=== PATIENT | male | born 1990 | race African-American/Black ===

== ENCOUNTER 2019-07-13 02:39 | Emergency (ER) | payer OTHER ==
[~2019-07-13] VITALS: Ht 165.1 cm; Wt 59.1 kg
[2019-07-13 02:44] VITALS: Ht 165.1 cm; Wt 59.1 kg
[2019-07-13 03:17] LABS: CALC OSMOLALITY 273 mosm/kg (275-300); CALCIUM 8.7 mg/dL (8.5-10.1); CARBON DIOXIDE 28.9 mmol/L (21.0-32.0); CHLORIDE - SERUM 100 mmol/L (98-107); CREATININE - SERUM 1.2 mg/dL (0.6-1.3); GLUCOSE 96 mg/dL (74-106); POTASSIUM - SERUM 4.3 mmol/L (3.5-5.1); SODIUM 137 mmol/L (136-145); UREA NITROGEN 12 mg/dL (7-18); eGFR NON AFRICAN AMERICAN 75 mL/min (90-120)
[2019-07-13 03:23] LABS: BASOPHILS 0.2 % (0-2); EOSINOPHILS 1.2 % (0-7); HEMATOCRIT 44.4 % (42.0-54.0); IMMATURE GRANULOCYTES 0.1 % (0-5); MCH 31.7 pg (26.0-34.0); MCHC 33.8 g/dL (31.0-37.0); MCV 93.9 fL (80.0-100.0); MEAN PLATELET VOLUME 10.2 fL (7.4-10.4); MONOCYTES 11.5 % (2-11); PLATELET COUNT 226 10x3/uL (130-400); RBC 4.73 10x6/uL (4.20-6.10); RDW 12.2 % (11.5-14.5); WBC 8.6 10x3/uL (4.8-10.8)
[2019-07-13 03:28] LABS: INR 0.95 (0.85-1.17); PROTIME 12.7 SECONDS (11.6-15.0)
[2019-07-13 03:29] LABS: APTT 31.2 SECONDS (22.8-39.4)
[2019-07-13 03:36] LABS: ALBUMIN 3.8 g/dL (3.4-5.0); ALKALINE PHOSPHATASE 70 U/L (30-120); ALT (SGPT) 40 U/L (10-68); BILIRUBIN - TOTAL 0.51 mg/dL (0.2-1.3); C-REACTIVE PROTEIN 2.6 mg/dL (0.0-0.9); CKMB 0.8 U/L (0.0-3.6); CREATINE KINASE 238 UL (21-232); FERRITIN 182 ng/mL (3-244); PROTEIN - SERUM 7.7 g/dL (6.4-8.2)
[2019-07-13 03:37] LABS: TROPONIN-I < 0.017 ng/mL (0.000-0.060)
[2019-07-13 03:39] LABS: D-DIMER-QUANTITATIVE < 0.27 ug/mLFEU (0.20-0.54)
[2019-07-13 04:00] LABS: BILIRUBIN NEGATIVE (NEGATIVE); GLUCOSE NEGATIVE (NEGATIVE); KETONE NEGATIVE (NEGATIVE); NITRITE NEGATIVE (NEGATIVE); SPECIFIC GRAVITY 1.005 (1.005-1.020); UROBILINOGEN NORMAL (NORMAL)
[2019-07-13] MEDS ORDERED: KEFLEX500 MG PO (04:04)
[2019-07-13] MEDS ORDERED: ACETAMINOPHEN500 M1 PO (04:04)
[2019-07-13] MEDS ORDERED: IBUPROFEN800 MG PO (04:04)
[2019-07-13 05:41] VITALS: BP 109/65
== END 2019-07-13 05:41 | disposition home or self-care (01) ==
LOC: D.ER 02:39
PROVIDERS: Family Medicine
DX: R53.81 Other malaise (principal); R53.83 Other fatigue; R68.83 Chills (without fever); L53.8 Other specified erythematous conditions; R07.0 Pain in throat; J02.9 Acute pharyngitis, unspecified